=== PATIENT | female | born 1995 | race African-American/Black ===

== ENCOUNTER 2021-08-16 14:48 | Emergency (ER) | payer BC, MEDICAID, OTHER ==
[~2021-08-16] VITALS: Ht 157.5 cm; Wt 79.0 kg
[2021-08-16 16:05] VITALS: BP 128/90
[2021-08-16] MEDS ORDERED: DEXAMETHASONE 4MG TABLET PO ONE (18:15)
[2021-08-16] MEDS ORDERED: AZIT250T12 MT (18:21)
[2021-08-16 20:45] LABS: MONOTEST NEGATIVE (NEGATIVE)
== END 2021-08-16 21:31 | disposition home or self-care (01) ==
LOC: ER 14:48
DX: J02.0 Streptococcal pharyngitis (principal); Z88.0 Allergy status to penicillin
CPT/HCPCS: 86308; 87430; 99283

== ENCOUNTER 2022-03-14 17:34 | Emergency (ER) | payer MEDICAID, OTHER ==
[~2022-03-14] VITALS: Ht 162.6 cm; Wt 99.0 kg
[~2022-03-14 17:34] MED LIST: AZIT250T12 MT
[2022-03-14 17:47] VITALS: BP 138/88
[2022-03-14] MEDS ORDERED: NALO4SPR BOTHNSTRLS (20:48)
[2022-03-14] MEDS ORDERED: ONDANSETRON 4MG ODT PO ONE (21:15)
== END 2022-03-14 21:33 | disposition home or self-care (01) ==
LOC: ER 17:34
DX: T40.2X1A Poisoning by other opioids, accidental (unintentional), initial encounter (principal); F15.10 Other stimulant abuse, uncomplicated; F14.10 Cocaine abuse, uncomplicated; Z87.891 Personal history of nicotine dependence; Z88.0 Allergy status to penicillin; Y92.810 Car as the place of occurrence of the external cause
CPT/HCPCS: 82962; 93005; 99283; Q0162

== ENCOUNTER 2023-04-29 11:36 | Emergency (ER) | payer MEDICAID, OTHER ==
[~2023-04-29] VITALS: Ht 162.6 cm; Wt 68.0 kg
[~2023-04-29 11:36] MED LIST changes: +NALO4SPR BOTHNSTRLS
[2023-04-29 12:17] VITALS: BP 120/72; O2SAT 100
[2023-04-29 15:39] LABS: BASOPHILS % 0.4 % (0.0-2.0); EOSINOPHILS % 0.4 % (0.0-5.0); HEMATOCRIT. 38.2 % (36.0-48.0); HEMOGLOBIN. 12.8 g/dL (12.0-16.0); LYMPHOCYTES % 18.1 % (20.0-50.0); MEAN CORPUSCULAR HEMOGLOBIN 31.8 pg (28.0-32.0); MEAN CORPUSCULAR HGB CONC 33.4 g/dL (31.0-37.0); MEAN CORPUSCULAR VOLUME 95.2 fL (81.0-99.0); MEAN PLATELET VOLUME 7.4 fl (7.4-10.4); MONOCYTES % 8.3 % (2.0-8.0); NEUTROPHILS % 72.8 % (40.0-76.0); PLATELET 299 x1000/uL (130-400); RED BLOOD CELL COUNT 4.02 mill/uL (4.2-5.4); RED CELL DISTRIBUTION WIDTH 13.2 % (11.6-14.6); WHITE BLOOD COUNT 12.2 x1000/uL (4.5-11.0)
[2023-04-29 15:56] LABS: CLARITY URINE CLEAR (CLEAR); COLOR URINE YELLOW (YELLOW); GLUCOSE URINE NEGATIVE (NEGATIVE); KETONES URINE TRACE (NEGATIVE); LEUKOCYTE ESTERASE URINE NEGATIVE (NEGATIVE); NITRITE URINE NEGATIVE (NEGATIVE); OCCULT BLOOD URINE NEGATIVE (NEGATIVE); PROTEIN URINE TRACE (NEGATIVE); SPECIFIC GRAVITY URINE 1.031 (1.005-1.030)
[2023-04-29 15:59] LABS: RBC URINE 0-2 /hpf (0-2); WBC URINE 0-2 /hpf (0-2); YEAST URINE NONE SEEN
[2023-04-29] MEDS ORDERED: ACETAMINOPHEN 325MG TABLET PO ONE (16:00)
[2023-04-29 16:18] LABS: CHLORIDE 103 mEq/L (98-107); INDEX HEMOLYSI 1 (1-3); INDEX ICTERIC 1 (1-4); INDEX LIPEMIC 1 (1-3); POTASSIUM 3.7 mEq/L (3.5-5.1); SODIUM 137 mEq/L (136-145)
[2023-04-29 16:37] LABS: BACTERIA URINE 1+; SQUAMOUS EPITHELIAL CELL URINE FEW /lpf (RARE/1+)
[2023-04-29 16:43] LABS: B-HCG QUANTITATIVE 1266 mIU/mL (<3); CALCIUM 8.5 mg/dL (8.5-10.1); CARBON DIOXIDE 24 mEq/L (21-32); CREATININE 0.5 mg/dL (0.6-1.3); GLUCOSE 92 mg/dL (70-105); UREA NITROGEN BLOOD 8 mg/dL (7-21)
[2023-04-29] MEDS ORDERED: METOCLOPRAMIDE HCL 10MG TABLET PO ONE (19:00)
[2023-04-29 19:58] VITALS: PULSE 88; RESP 18; TEMP 98.5
== END 2023-04-29 20:00 | disposition home or self-care (01) ==
LOC: ER 11:36
DX: R10.9 Unspecified abdominal pain (principal); R10.2 Pelvic and perineal pain; F14.10 Cocaine abuse, uncomplicated; F15.10 Other stimulant abuse, uncomplicated; Z88.0 Allergy status to penicillin; Z32.01 Encounter for pregnancy test, result positive
CPT/HCPCS: 99284; 76770; 76830; 80048; 81003; 81025; 84702; 85025; 36415; 76856; J8597

== ENCOUNTER 2023-05-02 08:33 | Emergency (ER) | payer OTHER ==
[~2023-05-02] VITALS: Ht 162.6 cm; Wt 68.0 kg
[2023-05-02 08:45] VITALS: O2SAT 100
[2023-05-02] MEDS ORDERED: ACETAMINOPHEN 325MG TABLET PO ONE (09:45)
[2023-05-02] MEDS ORDERED: PREN-55 MT (11:43)
[2023-05-02 11:53] VITALS: BP 101/64; PULSE 73; RESP 16; TEMP 98.2
== END 2023-05-02 11:53 | disposition home or self-care (01) ==
LOC: ER 08:33
DX: O26.891 Other specified pregnancy related conditions, first trimester (principal); R10.9 Unspecified abdominal pain; Z3A.08 8 weeks gestation of pregnancy
CPT/HCPCS: 36415; 76801; 84702; 99284

== ENCOUNTER 2023-06-22 10:07 | Emergency (ER) | payer MEDICAID, OTHER ==
[~2023-06-22] VITALS: Ht 162.6 cm; Wt 63.0 kg
[~2023-06-22 10:07] MED LIST changes: +PREN-55 MT
[2023-06-22 10:28] VITALS: O2SAT 100
[2023-06-22 10:54] LABS: BASOPHILS % 0.3 % (0.0-2.0); EOSINOPHILS % 1.5 % (0.0-5.0); HEMATOCRIT. 39.3 % (36.0-48.0); HEMOGLOBIN. 13.3 g/dL (12.0-16.0); MEAN CORPUSCULAR HGB CONC 33.9 g/dL (31.0-37.0); MEAN CORPUSCULAR VOLUME 94.5 fL (81.0-99.0); MEAN PLATELET VOLUME 7.6 fl (7.4-10.4); NEUTROPHILS % 68.2 % (40.0-76.0); PLATELET 323 x1000/uL (130-400); RED BLOOD CELL COUNT 4.16 mill/uL (4.2-5.4); RED CELL DISTRIBUTION WIDTH 12.6 % (11.6-14.6); WHITE BLOOD COUNT 8.6 x1000/uL (4.5-11.0)
[2023-06-22 11:57] LABS: ALBUMIN 3.9 g/dL (3.4-5.0); CALCIUM 8.9 mg/dL (8.5-10.1); CARBON DIOXIDE 28 mEq/L (21-32); CHLORIDE 104 mEq/L (98-107); GLUCOSE 88 mg/dL (70-105); INDEX HEMOLYSI 1 (1-3); INDEX ICTERIC 1 (1-4); INDEX LIPEMIC 1 (1-3); POTASSIUM 3.4 mEq/L (3.5-5.1); SODIUM 137 mEq/L (136-145); UREA NITROGEN BLOOD 7 mg/dL (7-21)
[2023-06-22 12:06] LABS: ALANINE AMINOTRANSFERASE 27 IU/L (13-61); ASPARTATE AMINOTRANSFERASE 18 IU/L (15-37); B-HCG QUANTITATIVE 162 mIU/mL (<3); BILIRUBIN TOTAL 0.3 mg/dL (0.1-1.0); CREATININE 0.5 mg/dL (0.6-1.3); PROTEIN TOTAL 7.5 g/dL (6.0-8.3)
[2023-06-22 14:11] LABS: CLARITY URINE CLEAR (CLEAR); COLOR URINE YELLOW (YELLOW); GLUCOSE URINE NEGATIVE (NEGATIVE); KETONES URINE NEGATIVE (NEGATIVE); LEUKOCYTE ESTERASE URINE NEGATIVE (NEGATIVE); NITRITE URINE NEGATIVE (NEGATIVE); OCCULT BLOOD URINE 3+ (NEGATIVE); PH URINE 6.5 (4.5-8.0); PROTEIN URINE NEGATIVE (NEGATIVE); SPECIFIC GRAVITY URINE 1.004 (1.005-1.030); UROBILINOGEN URINE 0.2 E.U./dL (0.2-1.0)
[2023-06-22 14:41] LABS: BACTERIA URINE TRACE; SQUAMOUS EPITHELIAL CELL URINE FEW /lpf (RARE/1+)
[2023-06-22 14:42] LABS: RBC URINE 0-2 /hpf (0-2)
[2023-06-22 14:44] LABS: WBC URINE NONE SEEN /hpf (0-2)
[2023-06-22] MEDS ORDERED: MORPHINE SULFATE 10 MG/ML CPJ IM ONE (14:45)
[2023-06-22] MEDS ORDERED: ACETAMINOPHEN 325MG TABLET PO ONE (14:45)
[2023-06-22] MEDS ORDERED: ACETAMINOPHEN 325MG TABLET PO NR (15:11)
[2023-06-22] MEDS ORDERED: MORPHINE SULFATE 10 MG/ML CPJ IM NR (15:12)
[2023-06-22] MEDS ORDERED: TOPUD MT (15:23)
[2023-06-22] MEDS ORDERED: METH PO (15:23)
[2023-06-22] MEDS ORDERED: IBUP-2028 MT (15:36)
[2023-06-22 15:52] VITALS: BP 122/74
[2023-06-22 15:57] VITALS: PULSE 89; RESP 20; TEMP 98.5
== END 2023-06-22 16:01 | disposition home or self-care (01) ==
LOC: ER 10:24
DX: O03.4 Incomplete spontaneous abortion without complication (principal); N83.292 Other ovarian cyst, left side; F15.90 Other stimulant use, unspecified, uncomplicated; F14.90 Cocaine use, unspecified, uncomplicated; Z88.0 Allergy status to penicillin
CPT/HCPCS: 80053; 81003; 81025; 84702; 85025; 86850; 86900; 86901; 36415; 76830; 76856; 96372; 99285; J2270; Z7610

== ENCOUNTER 2024-05-25 08:19 | Emergency (ER) | payer MEDICAID ==
[~2024-05-25] VITALS: Ht 162.6 cm; Wt 73.0 kg
[~2024-05-25 08:19] MED LIST changes: +IBUP-2028 MT; +METH PO; +TOPUD MT
[2024-05-25 08:26] VITALS: O2SAT 100
[2024-05-25 09:54] LABS: CLARITY URINE CLEAR (CLEAR); COLOR URINE YELLOW (YELLOW); GLUCOSE URINE NEGATIVE (NEGATIVE); KETONES URINE NEGATIVE (NEGATIVE); LEUKOCYTE ESTERASE URINE NEGATIVE (NEGATIVE); NITRITE URINE NEGATIVE (NEGATIVE); OCCULT BLOOD URINE NEGATIVE (NEGATIVE); PH URINE 5.5 (4.5-8.0); PROTEIN URINE NEGATIVE (NEGATIVE); SPECIFIC GRAVITY URINE 1.012 (1.005-1.030); UROBILINOGEN URINE 0.2 E.U./dL (0.2-1.0)
[2024-05-25] MEDS ORDERED: NAPR-681 MT (10:21)
[2024-05-25 10:28] VITALS: BP 129/83; PULSE 88; RESP 18; TEMP 36.39180; O2SAT 97
== END 2024-05-25 10:30 | disposition home or self-care (01) ==
LOC: ER 08:19
DX: N94.6 Dysmenorrhea, unspecified (principal); F14.10 Cocaine abuse, uncomplicated; F15.10 Other stimulant abuse, uncomplicated; Z88.0 Allergy status to penicillin; Z79.899 Other long term (current) drug therapy
CPT/HCPCS: 81003; 81025; 99283

== ENCOUNTER 2025-01-03 19:33 | Emergency (ER) | payer MEDICAID, OTHER ==
[~2025-01-03] VITALS: Ht 162.6 cm; Wt 70.0 kg
[~2025-01-03 19:33] MED LIST changes: +NAPR-681 MT
[2025-01-03 19:56] VITALS: TEMP 36.8; O2SAT 100
[2025-01-03 20:22] LABS: BASOPHILS % 0.4 % (0.0-2.0); EOSINOPHILS % 1.7 % (0.0-5.0); HEMOGLOBIN. 12.9 g/dL (12.0-16.0); LYMPHOCYTES % 26.1 % (20.0-50.0); MEAN CORPUSCULAR HEMOGLOBIN 30.4 pg (28.0-32.0); MEAN CORPUSCULAR VOLUME 92.1 fL (81.0-99.0); MEAN PLATELET VOLUME 7.7 fl (7.4-10.4); MONOCYTES % 7.7 % (2.0-8.0); NEUTROPHILS % 64.1 % (40.0-76.0); PLATELET 328 x1000/uL (130-400); RED BLOOD CELL COUNT 4.23 mill/uL (4.2-5.4); RED CELL DISTRIBUTION WIDTH 13.4 % (11.6-14.6); WHITE BLOOD COUNT 11.4 x1000/uL (4.5-11.0)
[2025-01-03 20:28] LABS: CHLORIDE 107 mEq/L (98-107); POTASSIUM 3.6 mEq/L (3.5-5.1); SODIUM 141 mEq/L (136-145)
[2025-01-03 20:29] LABS: CARBON DIOXIDE 24 mEq/L (21-32)
[2025-01-03 20:34] LABS: GLUCOSE 110 mg/dL (70-105)
[2025-01-03 20:35] LABS: UREA NITROGEN BLOOD 9 mg/dL (9-23)
[2025-01-03 21:09] LABS: CLARITY URINE CLOUDY (CLEAR); COLOR URINE RED (YELLOW); PH URINE >9.0 (4.5-8.0)
[2025-01-03 21:10] LABS: GLUCOSE URINE NEGATIVE (NEGATIVE); KETONES URINE NEGATIVE (NEGATIVE); LEUKOCYTE ESTERASE URINE NEGATIVE (NEGATIVE); NITRITE URINE NEGATIVE (NEGATIVE); OCCULT BLOOD URINE 3+ (NEGATIVE); PROTEIN URINE NEGATIVE (NEGATIVE); UROBILINOGEN URINE 0.2 E.U./dL (0.2-1.0)
[2025-01-03 21:18] LABS: BACTERIA URINE TRACE; RBC URINE TNTC /hpf (0-2); SQUAMOUS EPITHELIAL CELL URINE FEW /lpf (RARE/1+); WBC URINE 0-2 /hpf (0-2)
[2025-01-03 21:39] LABS: HCG SCREEN NEGATIVE
[2025-01-03] MEDS: KETOROLAC 15MG/ML VIAL IM ONE (21:53)
[2025-01-04] MEDS ORDERED: NAPR-1176 MT
[2025-01-04 00:07] VITALS: BP 130/81; PULSE 90; RESP 16; O2SAT 98
== END 2025-01-04 00:08 | disposition home or self-care (01) ==
LOC: ER 19:33
DX: N93.8 Other specified abnormal uterine and vaginal bleeding (principal); F14.90 Cocaine use, unspecified, uncomplicated; F15.90 Other stimulant use, unspecified, uncomplicated; Z79.899 Other long term (current) drug therapy; Z79.1 Long term (current) use of non-steroidal anti-inflammatories (NSAID); Z88.0 Allergy status to penicillin
CPT/HCPCS: 80048; 81003; 81025; 84703; 85025; 36415; 76830; 76856; 96372; 99285; J1885; Z7610

== ENCOUNTER 2025-04-20 10:33 | Emergency (ER) | payer MEDICAID, OTHER ==
[~2025-04-20] VITALS: Ht 162.6 cm; Wt 67.0 kg
[~2025-04-20 10:33] MED LIST changes: +NAPR-1176 MT
[2025-04-20 11:07] VITALS: O2SAT 100
[2025-04-20] MEDS ORDERED: ACET-2708 MT (11:54)
[2025-04-20] MEDS ORDERED: GUAI600T44 MT (11:54)
[2025-04-20] MEDS: ACETAMINOPHEN 500MG TABLET PO ONE (12:16)
[2025-04-20 12:17] VITALS: BP 119/74; PULSE 82; RESP 16; TEMP 36.8; O2SAT 100
== END 2025-04-20 12:18 | disposition home or self-care (01) ==
LOC: ER 10:33
DX: K08.89 Other specified disorders of teeth and supporting structures (principal); F14.90 Cocaine use, unspecified, uncomplicated; F19.90 Other psychoactive substance use, unspecified, uncomplicated; Z79.1 Long term (current) use of non-steroidal anti-inflammatories (NSAID); Z88.0 Allergy status to penicillin
CPT/HCPCS: 99282